=== PATIENT | male | born 1955 | race Two or more races ===

== ENCOUNTER 2025-02-10 21:57 | Emergency (ER) | payer MEDICARE, SELFPAY ==
[2025-02-10 21:57] VITALS: PULSE 63; RESP 18; O2SAT 96; BMI 29.8
--- NOTE | 2025-02-10 22:05 | XR_ITS ---
Examination: Duplex scan of the lower extremity, unilateral right complete Date and time of exam: February 10, 2025 2201 hours INDICATIONS: Onset right leg pain today Technique: Duplex scan of the extremity veins using B-mode/grayscale imaging and Doppler spectral analysis and color flow Attention is directed to internal echogenicity, compression and augmentation involving these veins, color flow assessment, spectral analysis Findings: Major deep venous structures in the extremity demonstrate normal course and caliber. There is no evidence of deep vein thrombosis. Normal color flow and spectral analysis Impression: Negative for DVT..
[2025-02-10 23:01] VITALS: BP 162/77; PULSE 67; RESP 16; TEMP 36.6; O2SAT 97
[2025-02-10] MEDS: GABAPENTIN 300 MG CAPSULE PO (23:27)
[2025-02-10] MEDS: KETOROLAC INJ 60 MG/2 ML VIAL 30 MG IM (23:28)
--- NOTE | 2025-02-11 04:57 | PD.EDLOWEX ---
Lower Extremity Injury RME/HPI General Chief Complaint: Extremity Injury, Lower Stated Complaint: RIGHT LEG PAIN X TODAY Time Seen by Provider: 02/10/25 23:06 Arrival date/time: 02/10/25 21:57 69M with history of BPH presents to ED with R lower back pain that radiates down RLE after he bent down while doing some gardening. Patient denies N/V, CP, SOB, fall/trauma, hematuria/dysuria, bowel/bladder incontinence, and saddle paresthesia. Limitations: no limitations Related Data Home Medications ?Medication ?Instructions ?Recorded ?Confirmed ciprofloxacin HCl 500 mg tablet 500 mg PO BID 05/13/23 05/13/23 (Cipro) Allergies Allergy/AdvReac Type Severity Reaction Status Date / Time NKA* Allergy Uncoded 02/10/25 22:00 Review of Systems Review of Systems Systems Reviewed: All systems reviewed, normal except as documented Constitutional Constitutional: Reports system reviewed and no additional complaints, except as documented, Denies fever(s) and Denies headache(s) ENT Ears, Nose, Mouth, and Throat: Denies disequilibrium and Denies headache(s) Cardiovascular Cardiovascular: Reports system reviewed and no additional complaints, except as documented, Denies chest pain and Denies dyspnea Respiratory Respiratory: Reports system reviewed and no additional complaints, except as documented, Denies cough and Denies dyspnea Gastrointestinal Gastrointestinal: Reports system reviewed and no additional complaints, except as documented, Denies abdominal pain, Denies nausea and Denies vomiting Musculoskeletal Musculoskeletal: Reports as per HPI, Reports back pain and Reports radiating pain into limb Neurologic Neurologic: Reports system reviewed and no additional complaints, except as documented, Denies confusion, Denies disequilibrium and Denies headache(s) Psychiatric Psychiatric: Denies confusion Past Medical History Past Medical History NEUROLOGIC: Negative Neurological Disorders or Seizures CARDIAC: Negative Cardiac Disorders or Congestive Heart Failure RESPIRATORY: Negative Chronic Obstructive Pulmonary Disease (COPD) GASTROINTESTINAL: Negative Gastrointestinal Disorders or Hepatitis GENITOURINARY: Positive Genitourinary Disorders and Benign Prostatic Hyperplasia; Negative Renal Disease MUSCULOSKELETAL: Negative Musculoskeletal Disorders ENT: Positive Cataracts ENDOCRINE: Negative Endocrine Disorders, Diabetes Mellitus Type 1 or Diabetes Mellitus Type 2 HEMATOLOGIC: Negative Blood Disorders OTHER HISTORY: Positive Chicken Pox, Measles and Clostridium Difficile; Negative Hospitalization, Autoimmune Disease, Shingles, Blood Transfusions, Blood Transfusion Reaction, Anesthesia Reactions, MRSA or Cancer Family History FAMILY HISTORY: Negative Family Psychiatric Problems, Family Respiratory Disorders, Family Cardiac Disorders, Family Gastrointestinal Problems, Family Cancer, Family Surgery or Family Anesthesia Reaction Social History SMOKING STATUS: Never smoker ED Exam General Limitations: Present no limitations General appearance: Present alert and in no apparent distress Head Head exam: Present atraumatic Eye Eye exam: Present normal appearance, PERRL and EOMI ENT ENT exam: Present normal exam, normal oropharynx and mucous membranes moist Neck Neck exam: Present normal inspection, full ROM and trachea midline Chest Chest inspection: Present normal inspection and symmetric chest wall rise Respiratory Respiratory exam: Present normal lung sounds bilaterally Cardiovascular Cardiovascular exam: Present regular rate, normal rhythm and normal heart sounds Abdominal Exam Abdominal exam: Present soft and normal bowel sounds Extremities Exam Extremities exam: Present normal inspection and full ROM Back Exam Back exam: Present normal inspection and full ROM Neurological Exam Neurological exam: Present alert, oriented X3 and CN II-XII intact Psychiatric Psychiatric exam: Present normal affect and normal mood Skin Skin exam: Present warm, dry, intact and normal color Course Quality Measures none Orders Category Date Time Status US venous doppler LE RT Stat Exams 02/10/25 22:05 Completed Gabapentin [Neurontin] Med 02/10/25 23:06 Discontinued 300 mg PO X1 ONE Ketorolac Inj [Toradol Inj] Med 02/10/25 23:06 Discontinued 30 mg IM X1 ONE Vital Signs Vital signs: Vital Signs Temperature 97.9 F 02/10/25 23:01 Pulse Rate 67 02/10/25 23:01 Respiratory Rate 16 02/10/25 23:01 Blood Pressure 162/77 H 02/10/25 23:01 Pulse Oximetry (%) 97 02/10/25 23:01 Oxygen Delivery Method Room Air 02/10/25 23:01 O2 at 97% on RA and WNLs Extremity Injury, Lower MDM Narrative MDM Narrative:: 69M with history of BPH presents to ED with R lower back pain that radiates down RLE after he bent down while doing some gardening. Patient denies N/V, CP, SOB, fall/trauma, hematuria/dysuria, bowel/bladder incontinence, and saddle paresthesia. Physical exam reveals no back tenderness. Pain is with ROM, which is intact. No RLE abnormality. Patient is afebrile, calm, and alert. US no DVT. Likely muscle strain irritating sciatic nerve. Patient data External records reviewed:: [facility] previous records Clinical information provided by:: patient Social determinants that could affect healthcare access:: none Patient has the following chronic illnesses:: none How is presenting disease/condition affected by chronic disease/condition?: no chronic disease Evaluation data The following diagnostics were reviewed and interpreted by me:: radiology exam(s) Lab and/or radiology exams considered but not ordered:: ordered Interpretation Summary: above Medications / Prescriptions Medications or Prescriptions considered but not ordered:: ordered Medication administrations:: Medication Administration History Discontinued Medications Gabapentin (Gabapentin 300 Mg Capsule) 300 mg PO X1 ONE Stop: 02/10/25 23:07 Last Admin: 02/10/25 23:27 Dose: 300 mg Documented By: Ketorolac Tromethamine (Ketorolac Inj 60 Mg/2 Ml Vial) 30 mg IM X1 ONE Stop: 02/10/25 23:07 Last Admin: 02/10/25 23:28 Dose: 30 mg Documented By: above Consultations Consultation(s) initiated? (list below): No Diagnosis Extremity Injury, Lower Differential Diagnosis: ankle sprain and strain, acute internal derangement of knee, fracture of femur, fracture of hip, puncture wound of foot, fracture of toe, ankle fracture and other (DVT, sciatica, cauda equina) Most likely diagnosis given after review of the tests above:: sciatica Admission Indicated Admission indicated?: not indicated Admission Request Was there a request for admission?: No Disposition Plan Disposition Plan: Discharge Discharge Attestation Discharge Attestation: The patient and all family members were given an opportunity to ask questions and understood the discharge instructions. Discharge instructions specifically effects, indications for sooner follow up or return to the emergency department, and the expected course of current diagnosis. Patient condition: Stable Discharge Plan Plan Patient Disposition: HOME (Self Care) Disposition Comment: Stable Prescriptions/Referrals Prescriptions/Med Rec: No Action ciprofloxacin HCl [Cipro] 500 mg Tablet 500 mg PO BID Referrals: No Primary/Family,Physician [Primary Care Provider] - In 1 week Problem List Clinical Impression: Sciatica Patient/Caregiver Discharge Instructions Education Materials: ED Sciatica Additional Instructions: Please follow-up with PCP within 24-48 hours and return immediately if symptoms worsen. If problem persists, recommend outpatient PT and/or MRI follow-up. In the meantime, rest, use ice/heat, and/or compression. Print Language: Zambian Stand Alone Forms: Patient Portal Info Letter PA/IVAN Supervising Physician WILFRIDO/IVAN Supervising Physician: Dr. Ho
== END 2025-02-10 23:35 | disposition home or self-care (01) ==
PROVIDERS: Emergency Provider Emergency Medicine
DX: M54.41 Lumbago with sciatica, right side (principal)
CPT/HCPCS: 93971; 96372; 99284; J1885; A9270

== ENCOUNTER → 2025-04-12 | Outpatient (CLI) | payer MEDICARE, SELFPAY ==
--- NOTE | 2025-04-12 09:30 | XR_ITS ---
Examination: MRI lumbar spine without contrast Date and time of exam: April 12, 2025 1008 hours INDICATIONS: Low back pain radiating down the right leg numbness in the legs 2 years Technique: Multiple MRI axial and sagittal sections lumbar spine. Sagittal T2-weighted images, TR 3500, TE 118 T1 weighted transverse sections, TR 688 T8.5, T2-weighted sagittal sections T1 weighted sagittal sections TR 621, TE 30 T2 axial sections, TR 4, 190, TE 84. Findings: Adequate alignment lumbar vertebral bodies Adequate marrow signal lumbar vertebral bodies No lumbar fracture. Advanced disc narrowing L4-L5, L5-S1 L5-S1 5 mm central lumbar disc bulge displacing the right S1 nerve root L4-L5 small foraminal disc bulges in the 3 to 4 mm range no ganglionic compression L3-L4 4 mm right paracentral disc bulge displacing the right L4 nerve root L2-L3 no disc protrusion L1-2 no disc protrusion IMPRESSION: L5-S1 5 mm central lumbar disc bulge displacing the right S1 nerve root L3-L4 4 mm right paracentral disc bulge displacing the right L4 nerve root
== END | disposition home or self-care (01) ==
DX: M51.362 Other intervertebral disc degeneration, lumbar region with discogenic back pain and lower extremity pain (principal); M51.370 Other intervertebral disc degeneration, lumbosacral region with discogenic back pain only
CPT/HCPCS: 72148

== ENCOUNTER 2025-06-28 08:43 | Outpatient (RCR) | payer MEDICARE, SELFPAY ==
--- NOTE | 2025-06-28 09:14 | PTNOTE_ITS ---
PT OP Initial Eval Patient Information Outpatient Physical Therapy Treatment Date: 06/28/25 Visit Reasons: Sciatica right side Medical Diagnosis: M54.31 Start of Care: 06/28/25 Date of Onset: January 2025 Smoking Status Smoking Status: Never smoker Initial Assessment Subjective: Pt is 70 yr old urdu speaking male who c/o R LE pain and LBP worsening since January when he went to the ED with intense pain. Increased pain with prolonged walking. This limits bending, walking and lifting tolerances. The LE's both feel numb daily and he points to the anterior distal quad area. PMH: L shoulder sx Imaging: MRI of L/S L5-S1 5 mm central lumbar disc bulge displacing the right S1 nerve root, L3-L4 4 mm right paracentral disc bulge displacing the right L4 nerve root Pt goal: for the intense pain to not come back Objective: ?Trunk ArOM: ? B SB 50% of normal with pain ? Extension: 20% with pain around L4-5, L5-S1 ? Flexion: 10 from floor with LBP ? B rotation: 60% with pain ? TTP: moderate paraspinals L5-S1 ? Neuro: R SLR: positive Assessment: Pt presents with trunk flexion sensitivity and overlying myofascial pain ? and TTP around L5-S1 consistent with lower lumbar DDD with radiculopathy. Pt not likely going to benefit from skilled therapy due to severity of the disc space narrowing and he has poor rehab potential to meet goals. Eval ?followed by HEP printout. Short Term and Production Team Member Goals Eval and D/C Treatment Plan Eval and D/C Certification Dates: 06/28/25 to 09/26/25 Procedure Charges OP PT Eval Mod Complex 30 minutes: Yes
== END 2025-07-25 23:59 | disposition home or self-care (01) ==
LOC: CPTX 08:43
DX: M54.31 Sciatica, right side (principal); R26.2 Difficulty in walking, not elsewhere classified; R26.89 Other abnormalities of gait and mobility
CPT/HCPCS: 97162

== ENCOUNTER 2025-07-13 10:15 | Outpatient (AMB) | payer MEDICARE, SELFPAY ==
[2025-07-13 10:50] VITALS: BP 153/81; PULSE 68; RESP 18; TEMP 36.6; O2SAT 97; BMI 31.4
--- NOTE | 2025-07-13 10:50 | ORTHONT_ITS ---
Vital signs 07/13/25 10:50 Height 1.63 m Height Method Measured Weight 83.092 kg Weight Measurement Method Standing Scale BMI 31.4 BP 153/81 H Blood Pressure Source Automatic Cuff Blood Pressure Location Left Upper Arm Position Sitting Respiration 18 Pulse 68 Pulse Source Monitor Temp 98 F Temp Source Temporal Artery Scan Pulse Oximetry (%) 97 Oxygen Delivery Method Room Air Med/Allergies Allergies & Medications Allergies NKA* Allergy (Uncoded 07/13/25 10:52) Medication Reconciliation ciprofloxacin HCl 500 mg tablet (Cipro) 500 mg PO BID 05/13/23 [History Confirmed 07/13/25] meloxicam 7.5 mg tablet 7.5 mg PO QDAY #45 tabs 07/13/25 [Rx] Exam Exam Patient is in no acute distress and is cooperative with the examination today. Breathing is nonlabored. In no respiratory distress. Bilateral extremities were evaluated and demonstrates sensation intact to light touch. Palpable pedal pulses are present. No significant edema is present. Bilateral hips were examined. The patient has no pain with log roll of the hips. Internal rotation to 30 degrees and external rotation to 30 degrees is painless. Negative FADIR. The left knee was examined. The left knee is in varus alignment. Range of motion from 0-115 degrees. Knee is stable to varus and valgus as well as AP translation with <5mm. Patient has a negative McMurrays. There is no pain with patellofemoral compression and no crepitus noted. The knee is tender to palpation medially. The right knee was also examined. The right knee is in varus alignment. Range of motion from 0-120 degrees. Knee is stable to varus and valgus as well as AP translation with <5mm. Patient has a negative McMurrays. There is no pain with patellofemoral compression and no crepitus noted. The knee is tender to palpation medially. He has nonweightbearing x-rays and x-ray report that demonstrates significant arthritis on the right knee. I do not have them to view. Assessment and Plan Problem List (1) Degenerative arthritis of knee, bilateral: Status: Acute Plan: Patient is a pleasant 70-year-old male with bilateral knee pain and bilateral knee arthritis. We discussed different treatment options. I would like to get weightbearing x-rays. We will likely do a cortisone injection at the next visit I will get authorization for injections. We also sent him a prescription for meloxicam. We discussed natural history of arthritis in great detail today Advanced Care Planning Discussion Advance care planning discussed with:: patient Office Procedures GNS Level of Care Nursing/Assessment Patient Status: Initial/New Patient Nursing Assessment/Reassesment: Medication Reconciliation, Orthostatic Vitals, Update PMH in EMR and Vital Signs Coordination of Care: Complex Care and Chronic Disease 1-5, Education Complex Pt/Fam, Consent,records obtained, informed consent, Lab and Imaging orders, Results/Orders obtained and Staff clarify orders Special Needs: Language special needs New Patient Charge New Patient Point Assignment: 1119 New Patient Point Charge: CABINETMAKER MAINTENANCE Level 4 ([id number]) MA Intake Visit Data Collection New Patient or Established: New Patient (never been to [facility]) Reason for Visit:: BILATERAL KNEE PAIN OSTEOARTHIRITIS Seen by Clinical Staff ONLY (RN/MA): No Casting Machine Set Up Operator Required: Yes PCP or OBGYN visit in last 3 months: Yes Hx Now: No Do You Feel Safe at Home: Yes Authorities Contacted: N/A Questionairres Past Medical History Past Medical History Have you ever been diagnosed with any of the following: Neurological Problems Seizures: No Cardiology Problems Congestive Heart Failure: No Respiratory Problems Chronic Obstructive Pulmonary Disease (COPD): No Smoking: No Smoking Cessation Counseling: No Smoking Exposure: No Stomache/Intestinal Problems Hepatitis: No Genital/Urinary Problems Renal Disease: No Benign Prostatic Hyperplasia: Yes Head,Eye,Nose,Throat Problems Cataracts: Yes Endocrine Problems Diabetes Mellitus Type 1: No Diabetes Mellitus Type 2: No Other Problems Hospitalization: No Shingles: No Blood Transfusions: No Blood Transfusion Reaction: No Anesthesia Reactions: No MRSA: No Chicken Pox: Yes Measles: Yes Clostridium Difficile: Yes Cancer: No Subjective Visit Visit for: new patient and knee Immunization / Flu Flu Vaccine in the Last 12 Months: No Flu Vaccine Exclusion Criteria: Refused by Patient History of Present Illness Chief complaint: BILATERAL KNEE PAIN OSTEOARTHRITIS Date of injury / onset of symptoms: 2 YEARS Patient is a pleasant 70-year-old male with bilateral knee pain worse on the right. This been ongoing for several years. He has not had any anti- inflammatories or any treatment. He has not had any injections Personal History Occupation: RETIRED Red flag PMH: none Pain Pain level (0-10): 5 Pain location: outside (lateral) and anterior Pain quality: dull Pain timing: increases with activity Associated signs & symptoms: numbness and weakness Ambulatory data Ambulatory device: none Treatments Number of previous injections: 0 Improvement with previous injections: No Number of Physical Therapy sessions: 0 Improvement with PT: No Improvement with NSAIDS: no Review of Systems Review of Systems: All systems negative unless otherwise noted in HPI.
--- NOTE | 2025-07-13 10:52 | XR_ITS ---
Examination: Bilateral knees 2 views Right lateral knee left lateral knee 2 views Bilateral axial knees single view TECHNIQUE: Bilateral AP knees standing single view, bilateral PA knees standing flexion single view Standing right lateral knee left lateral knee 2 views Bilateral axial knees single view total 5 views Date and time: July 13, 2025 1114 hours INDICATIONS: Losing strength in both knees beginning 2 years ago. FINDINGS: Advanced narrowing [id number] lateral joint spaces bilaterally Mild narrowing medial joint spaces Bilateral moderate osteoarthritis patellofemoral joints IMPRESSION: Advanced narrowing [id number] lateral joint spaces bilaterally
== END 2025-07-13 10:55 | disposition home or self-care (01) ==
LOC: HODSRG 10:15
PROVIDERS: PCP Physician Assistant Medical; Referring Provider Physician Assistant Medical; Supervising Provider Orthopaedic Surgery Adult Reconstructive Orthopaedic Surgery; Visit Provider Orthopaedic Surgery Adult Reconstructive Orthopaedic Surgery
DX: M17.0 Bilateral primary osteoarthritis of knee (principal); M25.562 Pain in left knee; M25.561 Pain in right knee
CPT/HCPCS: 73564; 99204; G0463

== ENCOUNTER 2025-07-27 08:01 | Outpatient (AMB) | payer MEDICARE, SELFPAY ==
[2025-07-27 08:12] VITALS: BP 144/85; PULSE 64; RESP 19; TEMP 36.4; O2SAT 94; BMI 30.6
--- NOTE | 2025-07-27 08:12 | ORTHONT_ITS ---
Vital signs 07/27/25 08:12 Height 1.63 m Height Method Stated Weight 81.25 kg Weight Measurement Method Standing Scale BMI 30.6 BP 144/85 H Blood Pressure Source Automatic Cuff Blood Pressure Location Left Upper Arm Position Sitting Respiration 19 Pulse 64 Pulse Source Monitor Temp 97.5 F Temp Source Temporal Artery Scan Pulse Oximetry (%) 94 L Oxygen Delivery Method Room Air Med/Allergies Allergies & Medications Allergies NKA* Allergy (Uncoded 07/27/25 08:13) Medication Reconciliation ciprofloxacin HCl 500 mg tablet (Cipro) 500 mg PO BID 05/13/23 [History Confirmed 07/27/25] meloxicam 7.5 mg tablet 7.5 mg PO QDAY #45 tabs 07/13/25 [Rx Confirmed 07/27/25] Exam Exam Patient is in no acute distress and is cooperative with the examination today. Breathing is nonlabored. In no respiratory distress. Bilateral extremities were evaluated and demonstrates sensation intact to light touch. Palpable pedal pulses are present. No significant edema is present. Bilateral hips were examined. The patient has no pain with log roll of the hips. Internal rotation to 30 degrees and external rotation to 30 degrees is painless. Negative FADIR. The left knee was examined. The left knee is in varus alignment. Range of motion from 0-115 degrees. Knee is stable to varus and valgus as well as AP translation with <5mm. Patient has a negative McMurrays. There is no pain with patellofemoral compression and no crepitus noted. The knee is tender to palpation medially. The right knee was also examined. The right knee is in varus alignment. Range of motion from 0-120 degrees. Knee is stable to varus and valgus as well as AP translation with <5mm. Patient has a negative McMurrays. There is no pain with patellofemoral compression and no crepitus noted. The knee is tender to palpation medially. Weight bearing xrays demonstrate signifdicant lateral joint space arthritis bilaterally with complete joint space narrowing. Assessment and Plan Problem List (1) Degenerative arthritis of knee, bilateral: Status: Acute Plan: Patient is a pleasant 70-year-old male with bilateral knee pain and bilateral knee arthritis. We discussed different treatment options. He has significant joint space narrowing bilaterally. I discussed anti-inflammatories as well as injections. I strongly recommended a cortisone injection to differentiate his back from knee pain. He is spent over 20 minutes up with us asking about the side effects and the risk of cortisone. We printed out side effects and went over it with him today. I do think that he is hesitant to get a cortisone injection I discussed with him there is no way to differentiate the knee pain without some sort of injection. He does not want treatment and wants to see a spine surgeon as he is more concerned about his weakness and his back issues. I spent an extensive amount of time with him discussing different treatment options and that we would need to differentiate the back from the x-rays. At this point in time, he would like to see a spine surgeon which I think is fine Advanced Care Planning Discussion Advance care planning discussed with:: patient Office Procedures GNS Level of Care Nursing/Assessment Patient Status: Established Patient Nursing Assessment/Reassesment: Medication Reconciliation, Update PMH in EMR and Vital Signs Coordination of Care: Complex Care and Chronic Disease 1-5, Education Complex Pt/Fam, Consent,records obtained, informed consent, Results/Orders obtained and Staff clarify orders Special Needs: Language special needs Established Patient Charge Established Patient Point Assignment: 95 Established Patient Point Charge: EP Level 3 (80-115) MA Intake Visit Data Collection New Patient or Established: Established Patient (seen at [facility] within 3 years) Reason for Visit:: BILATERAL KNEE PAIN OSTEOARTHIRITIS Seen by Clinical Staff ONLY (RN/MA): No Channel Account Manager Required: Yes PCP or OBGYN visit in last 3 months: Yes Hx Now: No Do You Feel Safe at Home: Yes Authorities Contacted: N/A Questionairres Past Medical History Past Medical History Have you ever been diagnosed with any of the following: Neurological Problems Cerebrovascular Accident (CVA): No Transient Ischemic Attacks (TIA): No Dementia: No Alzheimer's Disease: No Parkinson's Disease: No Brain Tumor: No Meningitis: No Seizures: No Epilepsy: No Multiple Sclerosis: No Cerebral Palsy: No Amyotrophic Lateral Sclerosis (ALS/Ksenia Gehrig's): No Guillain-[place] Syndrome: No Spina Bifida: No Paralysis: No Peripheral Neuropathy: No Agee's Palsy: No Subdural Hematoma: No Migraine: No Head Trauma: No Spinal Cord Injury: No Traumatic Brain Injury: No Cardiology Problems Myocardial Infarction: No Cardiac Arrhythmia: No Atrial Fibrillation: No Angina: No Heart Murmur: No Coronary Artery Disease: No Atherosclerotic Heart Disease: No Peripheral Vascular Disease: No Hypercholesterolemia: No Aneurysm: No Congestive Heart Failure: No Congenital Heart Disease: No Valvular Heart Disease: No Rheumatic Fever: No Cardiomyopathy: No Edema: No Pericarditis: No Cellulitis: No Deep Vein Thrombosis: No Hypertension: No Hypotension: No Varicose Veins: No Respiratory Problems Chronic Obstructive Pulmonary Disease (COPD): No Asthma: No Bronchitis: No Emphysema: No Pneumonia: No Pulmonary Fibrosis: No Tuberculosis: No Pulmonary Embolism: No Pulmonary Edema: No Sleep Apnea: No CPAP Dependent: No Respiratory Aspiration: No Dyspnea: No Orthopnea: No Hx Cough: No Cough: No Wheezing: No Chest Deformities: No Smoking: No Smoking Cessation Counseling: No Smoking Exposure: No Tobacco Use: No Clubbing: No Exposure to Respiratory Irritants: No Intubation: No Stomache/Intestinal Problems Liver Cancer: No Hepatitis: No Cirrhosis: No Pancreatic Cancer: No Pancreatitis: No Celiac Disease: No Gall Bladder Disease: No Gastrointestinal Bleed: No Esophageal Varices: No Metcalf's Esophagus: No Colitis: No Ulcerative Colitis: No Diverticulitis: No Diverticulosis: No Ulcer: No Colorectal Cancer: No Irritable Bowel: No Crohn's Disease: No Obstructive Bowel: No Hiatal Hernia: No Hemorrhoids: No Gastroesophageal Reflux Disease: No Polyps: No Obesity: No Genital/Urinary Problems Chronic Kidney Disease: No Renal Disease: No Kidney Stones: No Polycystic Kidney Disease: No Neurogenic Bladder: No Inguinal Hernia: No Dialysis: No Prostate Cancer: No Benign Prostatic Hyperplasia: Yes Reproductive Problems Breast Cancer: No Fibroids: No Genital Herpes: No Gonorrhea: No Syphilis: No Testicular Cancer: No Musculoskeletal Problems Muscular Dystrophy: No Myasthenia Gravis: No Marfan's Syndrome: No Bone Cancer: No Rheumatoid Arthritis: No Osteoporosis: No Degenerative Disk Disease: No Gout: No Scoliosis: No Carpal Tunnel Syndrome: No Fibromyalgia: No Fractures: No Degenerative Joint Disease: No Osteomyelitis: No Poliovirus: No Head,Eye,Nose,Throat Problems Cataracts: Yes Glaucoma: No Blind: No Retinal Detachment: No Macular Degeneration: No Chronic Ear Infections: No Deafness: No Eye Prosthesis: No Endocrine Problems Diabetes Mellitus Type 1: No Diabetes Mellitus Type 2: No Hypoglycemia: No Alexis's Syndrome: No Jefferson's Disease: No Hyperthyroidism: No Hypothyroidism: No Thyroid Cancer: No Parathyroid Disease: No Pituitary Disease: No Systemic Lupus Erythematosus: No Syndrome of Inappropriate Antidiuretic Hormone: No Adrenal Disease: No Graves' Disease: No Blood Problems Anemia: No Leukemia: No Hemophilia: No Thalassemia: No Sickle Cell Disease: No Clotting Problems: No Psychologic Problems Schizophrenia: No Recreational Drug Use: No Bipolar Disorder: No Depression: No Anxiety: No Behavior Problems: No Self-Mutilation: No Attention Deficit Disorder: No Attention Deficit Hyperactivity Disorder: No Depression: No Post Traumatic Stress Disorder: No Eating Disorder: No Other Problems Hospitalization: No Autoimmune Disease: No Down Syndrome: No Autism: No Developmental Delay: No Cosmetic Surgery: No Shingles: No Falls: No Blood Transfusions: No Blood Transfusion Reaction: No Anesthesia Reactions: No Organ Transplant: No Chemotherapy: No Radiation Therapy: No Hyperbaric Therapy: No MRSA: No VRSA: No Vancomycin-Resistant Enterococci: No Human Immunodeficiency Virus (HIV): No Chicken Pox: Yes Measles: Yes Mumps: No Rubella ([place]ib[place] Measles): No Pertussis: No Klebsiella Pneumoniae Carbapenemase Producing Bacteria: No Clostridium Difficile: Yes Hepatitis A: No Hepatitis B: No Hepatitis C: No Communicable Disease: No Cancer: No Lung Cancer: No Surgical History Angioplasty: No Appendectomy: No Bariatric Surgery: No Breast Surgery: No Cancer Surgery: No Carotid Endarterectomy: No Cholecystectomy: No Colectomy: No Colostomy: No Coronary Artery Bypass Graft: No Valve Replacement: No Herniorrhaphy: No Total Hip Replacement: No Total Knee Replacement: No Pacemaker: No Sinus Surgery: No Splenectomy: No Thyroidectomy: No Ureter Stent: No Subjective Visit Visit for: follow up visit, knee and x-rays Immunization / Flu Flu Vaccine in the Last 12 Months: No Flu Vaccine Exclusion Criteria: Refused by Patient History of Present Illness Chief complaint: BILATERAL KNEE PAIN OSTEOARTHRITIS Date of injury / onset of symptoms: 2 YEARS Patient is a pleasant 70-year-old male with bilateral knee pain worse on the right. This been ongoing for several years. He has not had any anti- inflammatories or any treatment. He has not had any injections. He has tried formal physical therapy for several sessions.. He has an MRI demonstrates spinal issues including spinal stenosis. His primary issue is his back pain and pain shooting down his leg. He reports that weakness is a big problem. Personal History Occupation: RETIRED Red flag PMH: none Pain Pain level (0-10): 0 Pain location: outside (lateral) and anterior Pain quality: dull Pain timing: increases with activity Associated signs & symptoms: numbness and weakness Ambulatory data Ambulatory device: none Treatments Number of previous injections: 0 Improvement with previous injections: No Number of Physical Therapy sessions: 0 Improvement with PT: No Improvement with NSAIDS: no Review of Systems Review of Systems: All systems negative unless otherwise noted in HPI.
== END 2025-07-27 08:49 | disposition home or self-care (01) ==
LOC: HODSRG 08:01
PROVIDERS: PCP Physician Assistant Medical; Referring Provider Physician Assistant Medical; Supervising Provider Orthopaedic Surgery Adult Reconstructive Orthopaedic Surgery; Visit Provider Orthopaedic Surgery Adult Reconstructive Orthopaedic Surgery
DX: M17.0 Bilateral primary osteoarthritis of knee (principal); M25.562 Pain in left knee; M25.561 Pain in right knee
CPT/HCPCS: 99213; G0463